=== PATIENT | male | born 1990 | race Caucasian/White ===

== ENCOUNTER 2020-08-26 11:16 | Emergency (ER) | payer OTHER, SELFPAY ==
[2020-08-26] VITALS (7 sets, daily range): BP systolic 120–128; BP diastolic 64–74; PULSE 89–106; RESP 14–25; TEMP 36.4–36.8; O2SAT 95–100; BMI 30.6
--- NOTE | 2020-08-26 11:27 | EKG12_ITS ---
Test Reason : TRAUMA Blood Pressure : / mmHG Vent. Rate : 108 BPM Atrial Rate : 108 BPM P-R Int : 172 ms QRS Dur : 100 ms QT Int : 356 ms P-R-T Axes : 051 043 018 degrees QTc Int : 477 ms Sinus tachycardia Otherwise normal ECG Confirmed by ABBY RUFFIN, ERLINDA ([id number]), dictionary editor BAILEE EVERETT ([id number]) on 08/30/2020 9:29:23 AM Referred By: ZEB Confirmed By:ERLINDA MORA MD
--- NOTE | 2020-08-26 11:28 | CT_ITS ---
STUDY: CT CHEST, ABDOMEN T PELVIS WITH CONTRAST REASON FOR EXAM: Male, 29 years old. Tree fell on patient, crepitus left side -- TRAUMA ONLY: IV Contrast. Dont wait for creatinine RADIATION DOSAGE (If Supplied By Facility): CTDIvol = ( 14.51 ) mGy, DLP = ( 1305.58 ) mGycm TECHNIQUE: Transaxial imaging was performed following intravenous administration of IV 100mL Isovue-370. Individualized dose optimization techniques were used for this CT. COMPARISON: No relevant priors. FINDINGS: CHEST Some dependent bibasilar atelectasis. There is no demonstrated pleural abnormality. Normal heart and pericardium. Normal mediastinum. Normal hilar regions. Normal unenhanced pulmonary arteries. Normal aorta arch and descending thoracic aorta. Acute fractures of the right third fourth fifth, sixth, seventh, eighth, and ninth ribs. Short flail segment of the fracture of the right fourth rib. There is no demonstrated abnormality of the visualized upper abdomen. ABDOMEN The visualized lung bases are unremarkable. The visualized portions of the heart are within normal limits. Normal liver. Normal gallbladder and extrahepatic biliary system. Normal spleen. Normal pancreas. Normal bilateral adrenal glands. Normal right kidney. Normal left kidney. Normal visualized stomach. Normal small intestine. Normal colon. The appendix is visualized and appears normal. Normal abdominal aorta. Normal inferior vena cava. Normal retroperitoneum. Normal abdominal wall. Acute burst fracture of the L3 vertebral body with 2 mm retropulsion of the inferior endplate and the spinal canal producing mild spinal stenosis. PELVIS Normal urinary bladder. Normal visualized small intestine. Normal visualized colon. There is no pelvic fluid. There is no pelvic lymphadenopathy or mass lesion. Normal visualized pelvic arteries. Normal abdominal wall. Normal osseous structures. CT/CT Chest, Abd, Pel w/Contrast IMPRESSION: 1. Acute fractures of the right third through ninth ribs with a small flail segment of the right fourth rib. No hemothorax or pneumothorax. 2. Acute burst fracture of L3 with 2 mm retropulsion of the inferior endplate and the spinal canal producing mild spinal stenosis. 3. No acute traumatic aortic injury. 4. No solid organ or bowel injury. No hemoperitoneum. Electronically Signed: Erick Mendoza MD at 13:04 EDT Tel , Service support ,
--- NOTE | 2020-08-26 11:29 | EX.ED.GENINJ ---
HPI History of Present Illness Chief Complaint: Trauma Informant: patient, spouse/S.O. and EMS Onset/Context/Timing Onset: Today Mechanism/Context: Blunt Injury (Patient with a cutting trees. A tree that is 18 inches diameter fell and struck him on his back. He is complaining of mid back pain and right ankle) Location: Mid back, left flank, right ankle Current Severity: Moderate Maximum Severity: Severe Worsened by: Movement Relieved by: Improved after Dilaudid Associated Symptoms Associated Symptoms: Positive for Loss of function and Inability to ambulate; Negative for Parasthesias, Weakness, Loss of consciousness and Amnesia Narrative Narrative: Patient was out cutting trees. He was cutting a tree that was 18 inch diameter. The tree fell on him. Struck his back. He was pushed into a ditch. He complains of mid back pain. He also complains of left flank pain. He states he was unable to bear weight and his ankle was reported to be deformed. His tetanus was approximately 10 years ago. He denies loss of conscious. Denies headache. Denies visual, ocular auditory symptoms. He denies neck pain. He states he was not struck in the neck. He does report discomfort with deep breathing. He has no allergies. He has no medical problems. Tetanus Immunization: >10 years Prior similar symptoms: No Recent Illness/Hospitalization: No PFSH PFSH Home Medications No Known/Unobtainable [No Known Home Medications] 06/30/15 [History Last Taken Unknown] Allergy/AdvReac Type Severity Reaction Status Date / Time No Known Allergies Allergy Verified 08/26/20 11:20 Social History (Updated 08/26/20 @ 11:[address] Luis Enrique Marmolejo MD) household members: spouse housing: house Smoking Status: Never smoker alcohol intake: current alcohol intake frequency: holidays/special occasions only substance use type: does not use ROS ROS ED Constitutional Constitutional ED: Denies chills, fever(s) or subjective Eyes Eyes: Denies blurry vision or change in vision ENT ENT ED: Denies ear pain, rhinorrhea or sore throat Cardiovascular Cardiovascular: Denies chest pain, palpitations or racing heartbeat Respiratory/Chest Respiratory/Chest: Denies cough, dyspnea or sputum Gastrointestinal Gastrointestinal: Denies abdominal pain, diarrhea, nausea or vomiting Genitourinary Genitourinary ED: Denies dysuria, hematuria or urinary frequency Musculoskeletal Musculoskeletal: Reports back pain; Denies arthralgias, myalgias or neck pain Integumentary Reports Abrasions; Denies abscess or rash Neurologic Neurologic: Denies headache(s), paresthesias or weakness Hematologic/Lymphatic Hematologic/Lymphatic: Denies easy bleeding or easy bruising EXAM Physical Exam Const Vital Signs: 08/26/20 11:17 08/26/20 11:21 08/26/20 12:12 Temperature 98.2 F Temperature Source Oral Pulse Rate 106 H 105 H Respiratory Rate 21 H 25 H Respiratory Effort Normal Non-Labored Respiratory Depth Normal Respiratory Pattern Normal Blood Pressure 123/71 H 122/64 H Blood Pressure Mean 88 83 Pulse Ox 96 97 Oxygen Delivery Method Room Air Room Air Room Air 08/26/20 13:00 08/26/20 14:00 08/26/20 15:12 Temperature Temperature Source Pulse Rate 89 89 99 Respiratory Rate 14 16 18 Respiratory Effort Respiratory Depth Respiratory Pattern Blood Pressure 121/74 H 128/74 H 120/73 Blood Pressure Mean 89 92 88 Pulse Ox 100 97 98 Oxygen Delivery Method Room Air Room Air Room Air Positive well nourished and well developed General Appearance ED: well developed and other Patient appears well. He is on a backboard. He has an air splint right ankle. He did arrive with c-collar. He states the abrasion on his face was due to a brush he fell into. HEENT Reports TM's clear HEENT Narrative: No clinical findings of basal skull fracture. No septal deviation hematoma. No evidence of dental trauma. trauma; Negative for atraumatic or tenderness Tympanic Membrane ED: Yes TM's clear Eyes PERRL and EOMs intact bilaterally General Eye ED: Yes other Other Details: There is no subconjunctival hemorrhage noted. Neck full ROM General: Negative for tenderness Chest Wall inspection of chest normal Resp normal respiratory effort and No clear to auscultation bilaterally Auscultation: rales left lower (There is also a clicking sound suspicious for rib fracture.) Cardio regular rhythm, S1 normal heart sound, S2 normal heart sound and no murmurs Rate: regular rate GI no masses Palpation: soft and tender LLQ and LUQ; Negative for guarding or rebound tenderness present Back/Spine Negative for no thoracic nor lumbar tenderness General Back: CVA tenderness left Extremity Extremity Narrative: There is deformity of the right ankle. DP and PT pulse are palpable. There is abrasion behind the right and left knee. The patellas are not ballotable and there is an effusion. He had no pain the patient of the thighs. He denied pain to palpation over the pelvis. Neuro oriented x3, CN's II-XII intact bilaterally, moves all extremities, no focal motor deficits and no sensory deficits noted Neuro Narrative: There is no clonus or Babinski sign noted. [place] Coma Scale: document GCS findings Spontaneous Obeys Commands Oriented 15 Sensorium / Orientation: alert Psych mental status grossly normal Skin Skin Narrative: Face and lower extremities Trauma: abrasion PROC Procedures Lower Extremity Splints Lower Extremity Splint: Plaster, Stirrup and - (Posterior short leg) Splint Fabrication: Fabricated Location: Right MDM MDM MDM Narrative Medical decision making narrative: With no trauma to the head or neck and no complaints or findings other than the abrasion because he landed on a espinosa imaging of the head neck was not obtained. Since he has significant tenderness left rib cage with rales and clicking sound suspicious for fractured ribs, splenic injury, renal injury. Also concern for fracture of the spine. Will need to assess urine for hematuria. Tetanus was updated. X-ray of the ankle was obtained as well. Lab Data Attestation: I reviewed the patient's lab results. Labs: Laboratory Results - last 24 hr 08/26/20 08/26/20 08/26/20 11:30 11:30 11:30 WBC 10.3 RBC 5.02 Hgb 14.4 Hct 42.9 MCV 85.5 MCH 28.7 MCHC 33.6 RDW Std Deviation 38.7 RDW Coeff of Keshav 12.6 Plt Count 228 MPV 9.2 Immature Gran % (Auto) 2.800 H Neut % (Auto) 78.5 H Lymph % (Auto) 13.2 L [place] % (Auto) 5.0 Eos % (Auto) 0.1 Baso % (Auto) 0.4 Absolute Neuts (auto) 8.1 H Absolute Lymphs (auto) 1.36 Nucleated RBC % 0 PT 13.5 INR 1.1 APTT 26.9 Sodium 144 Potassium 4.1 Chloride 111 H Carbon Dioxide 20.0 L Anion Gap 13 BUN 19 H Creatinine 0.92 Estim Creat Clear Calc 126.18 Est GFR (MDRD) Af Amer 124 Est GFR (MDRD) Non-Af 103 BUN/Creatinine Ratio 20.7 H Glucose 66 L Calcium 8.4 L Total Bilirubin 0.50 Direct Bilirubin 0.11 AST 83 H ALT 106 H Alkaline Phosphatase 47 Total Protein 7.0 Albumin 3.7 Globulin 3.3 Radiography Diagnostic Testing: Radiology Impression Chest/Abdomen/Pelvis CT 08/26/20 11:28 IMPRESSION: 1. Acute fractures of the right third through ninth ribs with a small flail segment of the right fourth rib. No hemothorax or pneumothorax. 2. Acute burst fracture of L3 with 2 mm retropulsion of the inferior endplate and the spinal canal producing mild spinal stenosis. 3. No acute traumatic aortic injury. 4. No solid organ or bowel injury. No hemoperitoneum. Electronically Signed: Erick Mendoza MD at 13:04 EDT Tel , Service support , Ankle X-Ray 08/26/20 11:51 IMPRESSION: Acute fractures of the medial malleolus and posterior malleolus the tibia. Electronically Signed: Erick Mendoza MD at 12:33 EDT Tel , Service support , Lumbar Spine CT 08/26/20 12:47 IMPRESSION: 1. L3 burst fracture without cortical retropulsion or canal compression. 2. Separation of L3 anterior and middle columns, spinal instability is raised. Emergency surgical consultation is advised. Electronically Signed: Joey Farris MD at 15:21 EDT Tel , Service support , Thoracic Spine CT 08/26/20 12:47 IMPRESSION: 1. Intact thoracic spine. No thoracic spinal injury. Electronically Signed: Joey Farris MD at 15:23 EDT Tel , Service support , Lower Extremity CT 08/26/20 12:50 IMPRESSION: Comminuted medial and posterior malleolus fractures. Intact fibula, talus and calcaneus. Electronically Signed: Joey Farris MD at 15:05 EDT Tel , Service support , Three-view x-ray of the right ankle reveals a displaced medial malleolus fracture and posterior malleolus fracture. CT of the chest, abdomen and pelvis reveals rib fractures. There is no obvious splenic, liver or renal injury. There is no evidence of pneumoperitoneum or fluid in the abdomen. Awaiting official read by radiologist. Critical Care Time Critical Care Time: Yes Critical care time (excluding procedures): 30-74 minutes (36 minutes), Including time spent: (History, physical, discussion with EMS, discussion with radiologist, interpretation of laboratory results, arrangements for transfer to trauma center and discussion with ER physician at [facility], discussion with orthopedics here regarding ankle fracture), Discussing w/Patient &/or Family/Central Office Worker, Discussing w/Consultants and Arranging Admission or Transfer Discharge Plan Triage Chief Complaint: Trauma ED Provider: Luis Enrique Marmolejo Dx/Rx/DC Orders Clinical Impression: Multiple rib fractures involving four or more ribs, Closed flail chest, Burst fracture of lumbar vertebra Prescriptions: No Action No Known Home Medications RF: 0 Primary Care Provider: Care Physician,No Primary Referrals: Care Physician,No Primary [Primary Care Provider] - Disposition Disposition: Acute Care Hospital Discharge Location: Health system
[2020-08-26] MEDS: Morphine 4 MG/ML Syringe IV ×2 (11:33→15:28)
[2020-08-26] MEDS: Ondansetron 4 MG/2 ML Vial IV ×2 (11:33→16:25)
[2020-08-26 11:39] LABS: Absolute Lymphocyte Count 1.36 X10^3/uL (0.83-4.51); Absolute Neutrophil Count 8.1 X10^3/uL (2.0-7.7); Basophil# 0.04 X10^3/uL; Basophil% 0.4 % (0-1); Eosinophil# 0.01 X10^3/uL; Eosinophils% 0.1 % (0-5); Hematocrit 42.9 % (40-54); Hemoglobin 14.4 g/dL (13.0-16.5); Lymphocyte # 1.36 X10^3/ul (0.83-4.51); Lymphocyte % 13.2 % (19-41); Mean Corp Hgb Conc 33.6 g/dL (32-36); Mean Corpuscular Hgb 28.7 pg (27.0-32.0); Mean Corpuscular Volume 85.5 fL (80-94); Mean Platelet Vol. 9.2 fl (6.2-12.0); Monocyte# 0.51 X10^3/uL; NRBC Flagged by Analyzer 0 % (0-5); Neutrophil # 8.09 X10^3/uL (2.7-7.7); Neutrophil % 78.5 % (47-70); Platelet Count 228 K/mm3 (150-450); RBC Distribution Width CV 12.6 % (11.6-14.6); RBC Distribution Width SD 38.7 fl (35.1-43.9); Red Blood Count 5.02 M/mm3 (4.6-6.2); White Blood Count 10.3 K/mm3 (4.4-11.0)
--- NOTE | 2020-08-26 11:51 | RAD_ITS ---
STUDY: X-RAY - RIGHT ANKLE REASON FOR EXAM: Male, 29 years old. Injury/Pain TECHNIQUE: 2 view(s) of the ankle. COMPARISON: None. FINDINGS: Acute distracted fracture the posterior tibia (posterior malleolus). Acute nondisplaced oblique fracture the base of the medial malleolus the tibia. Normal tibiotalar articulation and ankle mortise. Normal visualized talus and calcaneus. The visualized subtalar, talonavicular, calcaneocuboid and tarsal articulations are normal. The soft tissue structures are unremarkable. RAD/Ankle 2 Views IMPRESSION: Acute fractures of the medial malleolus and posterior malleolus the tibia. Electronically Signed: Erick Mendoza MD at 12:33 EDT Tel , Service support ,
[2020-08-26 11:54] LABS: International Normalized Ratio 1.1; Partial Thromboplast Time 26.9 Seconds (24.1-36.2); Prothrombin Time (Protime)PT. 13.5 SECONDS (11.7-14.9)
[2020-08-26 11:55] LABS: AST(SGOT) 83 U/L (15-37); Alanine Aminotransfer ALT/SGPT 106 U/L (16-61); Albumin, Serum 3.7 g/dL (3.2-5.0); Alkaline Phosphatase 47 U/L (45-117); Anion Gap 13 (5-15); BUN 19 mg/dL (7-18); BUN/Creat Ratio 20.7 RATIO (10-20); Bilirubin, Direct 0.11 mg/dL (0.00-0.30); Calcium,Total 8.4 mg/dL (8.5-10.1); Chloride 111 mmol/L (98-107); Creatinine, Serum 0.92 mg/dL (0.70-1.30); EST Glomerular Filtration Rate 103 mL/min (>60); Est Glom Filt Rate - Afr Amer 124 mL/min (>60); Estimated Creatinine Clearance 126.18 ml/min; Globulin 3.3 g/dL (2.2-4.2); Glucose 66 mg/dL (74-106); Potassium 4.1 mmol/L (3.5-5.1); Sodium Level 144 mmol/L (136-145)
[2020-08-26] MEDS: Diphth,Pertuss(Acell),Tet Vac 0.5 ML Vial IM (11:59)
--- NOTE | 2020-08-26 12:47 | CT_ITS ---
STUDY: CT THORACIC SPINE WITHOUT CONTRAST REASON FOR EXAM: Male, 29 years old. RADIATION DOSAGE (If Supplied By Facility): CTDIvol = ( ) mGy, DLP = ( ) mGycm TECHNIQUE: The patient was scanned in a multi detector CT scanner. High resolution imaging was performed. Images were obtained from to . Sagittal and coronal images were reconstructed. Individualized dose optimization techniques were used for this CT. COMPARISON: None. FINDINGS: Thoracic spine is intact and aligned. Mineralization is normal. Paraspinous soft tissues are unremarkable. There are expected age-related changes. Spinal canal is patent. CT/Spine Thoracic WITH Contrast IMPRESSION: 1. Intact thoracic spine. No thoracic spinal injury. Electronically Signed: Joey Farris MD at 15:23 EDT Tel , Service support ,
--- NOTE | 2020-08-26 12:47 | CT_ITS ---
STUDY: CT LUMBAR SPINE WITHOUT CONTRAST REASON FOR EXAM: Male, 29 years old. Trauma tree fall RADIATION DOSAGE (If Supplied By Facility): CTDIvol = ( ) mGy, DLP = ( ) mGycm TECHNIQUE: CT of the lumbar spine was performed without contrast. Sagittal and coronal images were reconstructed. Individualized dose optimization techniques were used for this CT. COMPARISON: None FINDINGS: Lumbar spine is aligned. There is a coronal plane fracture the anterior from the middle columns of L3 without posterior cortical retropulsion. There is fracture of the left articular mass and lamina without displacement. 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 CT/Spine Lumbar WITH Contrast IMPRESSION: 1. L3 burst fracture without cortical retropulsion or canal compression. 2. Separation of L3 anterior and middle columns, spinal instability is raised. Emergency surgical consultation is advised. Electronically Signed: Joey Farris MD at 15:21 EDT Tel , Service support ,
--- NOTE | 2020-08-26 12:50 | CT_ITS ---
INDICATION: Trauma preoperative planning COMPARISON: Same day plain films TECHNIQUE: Scans through the ankle were obtained without oral or IV contrast. Thin slice axial reformat and coronal reformat images were obtained. CT scan done according to ALARA (As Low As Reasonably Achievable). FINDINGS: There is a comminuted intra-articular fracture involving the medial malleolus and posterior medial corner of the tibia. Fibular, calcaneus and talus are intact. Tibiotalar joint is located. Distal tibiofibular joint is located. There is overlying soft tissue contusion. CT/Extremity Lower without Contra IMPRESSION: Comminuted medial and posterior malleolus fractures. Intact fibula, talus and calcaneus. Electronically Signed: Joey Farris MD at 15:05 EDT Tel , Service support ,
[2020-08-26 15:34] LABS: Bacteria 0 SEEN /hpf (None Seen); Mucous, Urine 0 SEEN /hpf (<or=2+); Red Blood Cells-Urine 0 SEEN /hpf (0-5); Squamous Epithelial Cells - UA 0 SEEN /hpf (0-5); White Blood Cells 0 SEEN /hpf (0-5)
[2020-08-26 15:35] LABS: Color, Urine Yellow (Yellow); Glucose, Dipstick Normal (Normal); Leukocyte Esterase-Dipstick Negative /ul (Negative); Nitrite-Dipstick Negative (Negative); Occult Blood-Urine Negative /ul (Negative); Protein-Dipstick Negative (Negative); Specific Gravity, Urine 1.015 (1.002-1.030); Urine Bilirubin Dipstick Negative (Negative); Urine Clarity Clear (Clear); Urine Urobilinogen Normal (Normal)
[2020-08-26 15:44] LABS: Ketone-Dipstick 150 mg/dl (Negative)
== END 2020-08-26 16:30 | disposition short-term general hospital (02) ==
PROVIDERS: Emergency Provider Emergency Medicine
DX: S22.41XA Multiple fractures of ribs, right side, initial encounter for closed fracture (principal); S32.001A Stable burst fracture of unspecified lumbar vertebra, initial encounter for closed fracture; S00.81XA Abrasion of other part of head, initial encounter; S82.51XA Displaced fracture of medial malleolus of right tibia, initial encounter for closed fracture; W20.8XXA Other cause of strike by thrown, projected or falling object, initial encounter; Y92.89 Other specified places as the place of occurrence of the external cause; Y99.9 Unspecified external cause status; Y93.89 Activity, other specified; Z23 Encounter for immunization
CPT/HCPCS: 71260; 72128; 72129; 72131; 72132; 73600; 73700; 74177; 80048; 80076; 81001; 85025; 85610; 85730; 87426; 90715; 93005; 96374; 96375; 96376; 99285; J7030; Q9967; A4216; J2405